=== PATIENT | female | born 1945 | race Caucasian/White ===

== ENCOUNTER 2022-11-08 09:07 | Day surgery (SDC) | payer MEDICARE, SELFPAY ==
[2022-11-02 10:27] VITALS: BMI 21.4
--- NOTE | 2022-11-05 10:15 | MHC.SHP ---
Pre-Procedural Eval Section A Date of Service: 11/05/22 The patient is an INPATIENT: No Changes since office visit: No Cold of Flu in the past 2 weeks, No New Medical Problems, No Changes in Medication and No Patient answered all questions The History & Physical has been completed within 30 days and I have reviewed it.: Yes Section B Chief Complaint: Age-related nuclear cataract, left eye Allergies: Allergies Allergy/AdvReac Type Severity Reaction Status Date / Time gabapentin [GABAPENTIN] Allergy Intermediate RASH Verified 11/02/22 10:26 Plan Diagnosis/Plan: Unchanged I have reviewed the history and physical and performed a pertinent physical examination on my patient. No changes have occurred unless specified. Time Spent With Patient Time: Total time managing care of this patient today ____ minutes.
--- NOTE | 2022-11-08 09:36 | HO.ANESPROP2 ---
[facility] Past Medical History Medical History Arthritis Osteopenia Surgical History Surgical History H/O colonoscopy Hx of appendectomy Hx of hemorrhoidectomy Hx of tonsillectomy History of Problems with Anesthesia: No Social History Social History Are you a primary health care analyst to a significant other at home: No Do you presently have visiting nurse or other home services: No Patient Tobacco Use Status: Former Tobacco user Quit Date: 07/2022 Tobacco use type: Cigarette Years Smoked: 30 Use of substances other than those prescribed or required for medical reasons: No Have you been hit, kicked, punched, or otherwise hurt by someone within the past year? If so, by whom?: No Are you DNR?: No Advance Directives: No Advance Directives Information Provided: Yes (brochure mailed) Advance Directives on File: No Recently lost weight without trying: No Eating poorly because of decreased appetite: No Nutrition Risks: Surgical patient >75years Poor oral hygiene: No Meds Allergies Allergy/AdvReac Type Severity Reaction Status Date / Time gabapentin [GABAPENTIN] Allergy Intermediate RASH Verified 11/08/22 09:33 Active Medications: Current Medications Cyclopentolate HCl (Cyclopentolate 1 % Ophth Sravani 2 Ml Drpbtl) 1 drop EYE-LEFT Q5M [facility] Stop: 11/08/22 09:41 Lactated Ringer's (Lr) 500 mls @ 20 mls/hr IVCONT .Q24H JESSE Ketorolac Tromethamine (Ketorolac Tromethamine 0.5% Op 5 Ml Drops) 1 drop EYE-LEFT Q5M JESSE Stop: 11/08/22 09:41 Phenylephrine HCl (Phenylephrine Hcl 2.5% Oph Sravani 2 Ml Bottle) 1 drop EYE-LEFT Q5M JESSE Stop: 11/08/22 09:41 Povidone Iodine (Povidone Iodine 5 % Ophth Soln 30 Ml Bottle) 1 appl EYE-LEFT PREOP PRN PRN Reason: Pre-Op Surgical Implant Prophy Tropicamide (Tropicamide 1 % Ophth Sravani 3 Ml Btl) 1 drop EYE-LEFT Q5M JESSE Stop: 11/08/22 09:41 Home Medications Medication Instructions Recorded Confirmed Last Taken Type ascorbic acid (vitamin C) 500 mg 500 mg PO DAILY 11/02/22 11/02/22 Unknown History tablet (Vitamin C) calcium carbonate 600 mg calcium 600 mg PO DAILY 11/02/22 11/02/22 Unknown History (1,500 mg) tablet (Calcium) cholecalciferol (vitamin D3) 25 25 mcg PO DAILY 11/02/22 11/02/22 Unknown History mcg (1,000 unit) capsule (Vitamin D3) denosumab 60 mg/mL subcutaneous 60 mg subcut [id number] 11/02/22 11/02/22 Unknown History syringe (Prolia) Exam Exam Date and Time: November 08, 2022 0936 Height,Weight and Vital Signs: Height 5 ft Weight 49.895 kg Airway Mallampati Class: II TM Dist: >3cm Neck ROM: Full Loose/Missing/Broken Teeth: No Heart: RRR Lungs: CTA Assessment and Plan Assessment Anesthesia Assessment: Anesthesia Plan Discussed and Chart Reviewed Final Anesthetic Review History of Problems with Anesthesia: No NPO: Yes ASA Class: II Final Preanesthetic Review: Meds/Allgs Chart Reviewed, Consent Obtained/Reviewed and Anes Risks/Benef Reviewed Patient Risk: Low Procedure Risk: Low Anesthetic Plan Anesthetic Plan: MAC: Disposition: Standard PACU
[2022-11-08] MEDS: Ketorolac Tromethamine 0.5% Op 5 ML DROPS 1 DROP EYE-LEFT ×3 (09:59→10:16)
[2022-11-08] MEDS: Tropicamide 1 % Ophth Sol 3 ML BTL 1 DROP EYE-LEFT ×3 (09:59→10:15)
[2022-11-08] MEDS: Tetracaine HCl/PF 0.5% Oph Sol 4 ML DROPS 1 DROP EYE-LEFT (09:59)
[2022-11-08] MEDS: Phenylephrine HCL 2.5% Oph SoL 2 ML BOTTLE 1 DROP EYE-LEFT ×3 (10:00→10:15)
[2022-11-08] MEDS: Cyclopentolate 1 % Ophth Sol 2 ML DRPBTL 1 DROP EYE-LEFT ×2 (10:00→10:16)
[2022-11-08 10:01] VITALS: BP 156/69; PULSE 63; RESP 18; TEMP 36.7; O2SAT 96
--- NOTE | 2022-11-08 10:32 | PC.NURSE ---
2 Iv attempts by author. attempt and insertion by jody das rn
--- NOTE | 2022-11-08 10:51 | HO.PNOPHT ---
Ophthalmology Procedure Procedure Date of Service: 11/08/22 Ophthalmology Viscoelastic: Healpascual Ahnt Dual Pack Pro Ophthalmology Lenses: TECDAHLIA [id number] (26.5) Procedure Notes: PREOPERATIVE DIAGNOSIS: Decreased visual acuity left eye secondary to cataract POSTOPERATIVE DIAGNOSIS: Same PROCEDURE: Left cataract extraction with intraocular lens insertion SURGEON: Young Alvarado M.D. ANESTHESIA: Topical/MAC ESTIMATED BLOOD LOSS: None COMPLICATIONS: None After obtaining informed consent, the patient was brought to the operation room suite and placed in the supine position. After adequate sedation per anesthesia, topical drops of Tetracaine were given to the left eye. The eye was then prepped and draped in the usual sterile fashion. The operating room microscope was then positioned over the operative eye and a lid speculum placed. A paracentesis was created. Viscoelastic was then instilled into the anterior chamber. A three plane incision was then created temporally, utilizing a 2.85 mm keratome. Capsulotomy forceps were then utilized to create a circular tear capsulotomy. Hydrodissection and hydrodelineation were carried out until adequate mobilization of the nucleus occurred. Phacoemulsification was then utilized to remove the dense central nucleus followed by removal of the cortical material utilizing the automated aspiration irrigation unit. Viscoat elastic was instilled into the posterior capsular bag followed by placement of a posterior chamber intraocular lens without difficulty. The residual Viscoat elastic was then removed utilizing the automated IA machine. The wound was check and found to be watertight. The patient tolerated the procedure well and the lid speculum was removed. Intracameral injection of Vigamox 0.1 mL followed by a subtenon injection of Kenalog-40 0.2 mL were administered. The patient will be seen in the a.m.
[2022-11-08 11:10] VITALS: BP 138/50; PULSE 70; RESP 16; TEMP 36.1; O2SAT 98
== END 2022-11-08 11:25 | disposition home or self-care (01) ==
PROVIDERS: PCP Internal Medicine; Visit Provider Ophthalmology
PROC: (CPT 66985; principal; 2022-11-08 11:20)
DX: H25.12 Age-related nuclear cataract, left eye (principal); H35.09 Other intraretinal microvascular abnormalities; H52.4 Presbyopia; G90.512 Complex regional pain syndrome I of left upper limb; Q78.2 Osteopetrosis; Z79.899 Other long term (current) drug therapy; Z88.8 Allergy status to other drugs, medicaments and biological substances; Z87.891 Personal history of nicotine dependence
CPT/HCPCS: 66984; J2250; J3301; V2632

== ENCOUNTER 2022-11-29 08:49 | Day surgery (SDC) | payer MEDICARE, SELFPAY ==
[2022-11-02 10:29] VITALS: BMI 21.4
--- NOTE | 2022-11-24 09:34 | MHC.SHP ---
Pre-Procedural Eval Section A Date of Service: 11/24/22 The patient is an INPATIENT: No Changes since office visit: No Cold of Flu in the past 2 weeks, No New Medical Problems, No Changes in Medication and No Patient answered all questions The History & Physical has been completed within 30 days and I have reviewed it.: Yes Section B Chief Complaint: Age-related nuclear cataract, right eye Allergies: Allergies Allergy/AdvReac Type Severity Reaction Status Date / Time gabapentin [GABAPENTIN] Allergy Intermediate RASH Verified 11/08/22 09:33 Plan Diagnosis/Plan: Unchanged I have reviewed the history and physical and performed a pertinent physical examination on my patient. No changes have occurred unless specified. Time Spent With Patient Time: Total time managing care of this patient today ____ minutes.
[2022-11-29 09:29] VITALS: BP 123/58; PULSE 65; RESP 19; TEMP 36.8; O2SAT 98
[2022-11-29] MEDS: Cyclopentolate 1 % Ophth Sol 2 ML DRPBTL 1 DROP EYE-RIGHT ×3 (09:41→09:43)
[2022-11-29] MEDS: Ketorolac Tromethamine 0.5% Op 5 ML DROPS 1 DROP EYE-RIGHT ×3 (09:41→09:43)
[2022-11-29] MEDS: Tetracaine HCl/PF 0.5% Oph Sol 4 ML DROPS 1 DROP EYE-RIGHT (09:41)
[2022-11-29] MEDS: Tropicamide 1 % Ophth Sol 3 ML BTL 1 DROP EYE-RIGHT ×3 (09:41→09:43)
[2022-11-29] MEDS: Phenylephrine HCL 2.5% Oph SoL 2 ML BOTTLE 1 DROP EYE-RIGHT ×3 (09:42→09:43)
--- NOTE | 2022-11-29 09:56 | HO.ANESPROP2 ---
REPLACED BY [facility] Past Medical History Medical History Arthritis Osteopenia Surgical History Surgical History H/O colonoscopy Hx of appendectomy Hx of hemorrhoidectomy Hx of tonsillectomy History of Problems with Anesthesia: No Social History Social History Are you a primary client care consultant to a significant other at home: No Do you presently have visiting nurse or other home services: No Patient Tobacco Use Status: Former Tobacco user Quit Date: 07/2022 Tobacco use type: Cigarette Years Smoked: 30 Use of substances other than those prescribed or required for medical reasons: No Have you been hit, kicked, punched, or otherwise hurt by someone within the past year? If so, by whom?: No Are you DNR?: No Advance Directives: No Advance Directives Information Provided: Yes (brochure mailed) Advance Directives on File: No Recently lost weight without trying: No Eating poorly because of decreased appetite: No Nutrition Risks: Surgical patient >75years Poor oral hygiene: No Meds Allergies Allergy/AdvReac Type Severity Reaction Status Date / Time gabapentin [GABAPENTIN] Allergy Intermediate RASH Verified 11/08/22 09:33 Active Medications: Current Medications Povidone Iodine (Povidone Iodine 5 % Ophth Soln 30 Ml Bottle) 1 appl EYE-RIGHT PREOP PRN PRN Reason: Pre-Op Surgical Implant Prophy Home Medications Medication Instructions Recorded Confirmed Last Taken Type ascorbic acid (vitamin C) 500 mg 500 mg PO DAILY 11/02/22 11/02/22 Unknown History tablet (Vitamin C) calcium carbonate 600 mg calcium 600 mg PO DAILY 11/02/22 11/02/22 Unknown History (1,500 mg) tablet (Calcium) cholecalciferol (vitamin D3) 25 25 mcg PO DAILY 11/02/22 11/02/22 Unknown History mcg (1,000 unit) capsule (Vitamin D3) denosumab 60 mg/mL subcutaneous 60 mg subcut [id number] 11/02/22 11/02/22 Unknown History syringe (Prolia) Exam Exam Date and Time: November 29, 2022 0956 Height,Weight and Vital Signs: Height 5 ft Weight 49.895 kg Last Vital Signs Temp 98.3 F 02/13/23 09:29 Pulse 65 11/29/22 09:29 Resp 19 11/29/22 09:29 BP 123/58 L 11/29/22 09:29 Pulse Ox 98 11/29/22 09:29 O2 Del Method 11/29/22 09:29 Airway Mallampati Class: III TM Dist: >3cm Neck ROM: Full Loose/Missing/Broken Teeth: No Heart: RRR Lungs: CTA Assessment and Plan Assessment Anesthesia Assessment: Anesthesia Plan Discussed and Chart Reviewed Final Anesthetic Review History of Problems with Anesthesia: No NPO: Yes ASA Class: II Final Preanesthetic Review: Meds/Allgs Chart Reviewed, Consent Obtained/Reviewed and Anes Risks/Benef Reviewed Patient Risk: Low Procedure Risk: Low Anesthetic Plan Anesthetic Plan: MAC: Disposition: Standard PACU
--- NOTE | 2022-11-29 10:43 | HO.PNOPHT ---
Ophthalmology Procedure Procedure Date of Service: 11/29/22 Ophthalmology Viscoelastic: Ty Ahnt Dual Pack Pro Ophthalmology Lenses: TECDAHLIA [id number] (26) Procedure Notes: PREOPERATIVE DIAGNOSIS: Decreased visual acuity right eye secondary to cataract POSTOPERATIVE DIAGNOSIS: Same PROCEDURE: Right cataract extraction with intraocular lens insertion SURGEON: Young Alvarado M.D. ANESTHESIA: Topical/MAC ESTIMATED BLOOD LOSS: None COMPLICATIONS: None After obtaining informed consent, the patient was brought to the operating room suite and placed in the supine position. After adequate sedation per anesthesia, topical drops of Tetracaine were given to the right eye. The eye was then prepped and draped in the usual sterile fashion. The operating room microscope was then positioned over the operative eye and a lid speculum placed. A paracentesis was created. Viscoelastic was then instilled into the anterior chamber. A three plane incision was then created temporally, utilizing a 2.85 mm keratome. Capsulotomy forceps were then utilized to create a circular tear capsulotomy. Hydrodissection and hydrodelineation were carried out until adequate mobilization of the nucleus occurred. Phacoemulsification was then utilized to remove the dense central nucleus followed by removal of the cortical material utilizing the automated aspiration irrigation unit. Viscoelastic was instilled into the posterior capsular bag followed by placement of a posterior chamber intraocular lens without difficulty. The residual Viscoelastic was then removed utilizing the automated IA machine. The wound was checked and found to be watertight. The patient tolerated the procedure well and the lid speculum was removed. Intracameral injection of Vigamox 0.1 mL followed by a subtenon injection of Kenalog-40 0.2 mL were administered. The patient will be seen in the a.m.
[2022-11-29 11:07] VITALS: BP 132/63; PULSE 68; RESP 16; TEMP 36.4; O2SAT 99
[2022-11-29] MEDS: Acetaminophen 325 MG TABLET 650 MG PO (11:30)
== END 2022-11-29 11:22 | disposition home or self-care (01) ==
PROVIDERS: PCP Internal Medicine; Visit Provider Ophthalmology
PROC: (CPT 66985; principal; 2022-11-29 11:30)
DX: H25.11 Age-related nuclear cataract, right eye (principal); H52.4 Presbyopia; H35.09 Other intraretinal microvascular abnormalities; M81.0 Age-related osteoporosis without current pathological fracture; Z79.1 Long term (current) use of non-steroidal anti-inflammatories (NSAID); Z79.899 Other long term (current) drug therapy; Z87.891 Personal history of nicotine dependence
CPT/HCPCS: 66984; J2250; J3301; V2632